=== PATIENT | male | born 1990 | race Caucasian/White ===

== ENCOUNTER 2016-11-08 13:07 | Emergency (ER) ==
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
[2016-11-08] MEDS ORDERED: XYLOCAINE 1% INJ ONE (14:45)
--- NOTE | 2016-11-08 15:32 | Diag Imaging Result Document ---
PROCEDURE NAME: WRIST COMPLETE RIGHT - 11/08/2016 RIGHT WRIST 3 VIEWS: FINDINGS: No fracture. No dislocation. IMPRESSION: No acute bony injury.
[2016-11-08] MEDS ORDERED: NEOSPORIN OINTMENT PACKET ONE ×2 (15:39→15:40)
[2016-11-08 15:51] VITALS: BP 153/98
== END 2016-11-08 15:51 | disposition home or self-care (01) ==
LOC: ED 13:07
DX: S61.511A Laceration without foreign body of right wrist, initial encounter (principal); M25.531 Pain in right wrist; W45.8XXA Other foreign body or object entering through skin, initial encounter
CPT/HCPCS: 99283